=== PATIENT | female | born 1950 | race Hispanic/Latino ===

== ENCOUNTER 2018-03-27 17:39 | Inpatient (IN) | payer MEDICARE ==
[~2018-03-27] VITALS: Ht 152.4 cm; Wt 83.5 kg
[2018-03-27] MEDS: PIPER-TAZ 3.375 GM 50 ML IV SCH (00:55)
[2018-03-27] MEDS: VANCOMYCIN 1GM/NS 250 ML 250 ML IV SCH ×2 (01:35→22:45)
--- OUTSIDE RECORDS SUMMARY | 2018-03-27 17:51 | XMS REPORT ---
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 Montse Rausch MD Other specified disorders of urinary tract Elevated blood pressure 796.2 Active Montse Rausch MD Elevated blood pressure reading without diagnosis of hypertension Hematuria 599.70 Active Montse Rausch MD Hematuria, unspecified Hypertension 401.9 Active Montse Rausch MD Unspecified essential hypertension Obesity Active Montse Rausch MD Obesity, unspecified Ringing in the ears 388.30 Active Montse Rausch MD Tinnitus, unspecified Screening, colon cancer V76.51 Active Montse Rausch MD Screening for malignant neoplasms of colon Tachycardia 785.0 Active Montse Rausch MD Tachycardia, unspecified Thrush, oral 112.0 Active Montse Rausch MD Candidiasis of mouth Tinea corporis 110.5 Active Montse Rausch MD Dermatophytosis of the body Tobacco user 305.1 Active Montse Rausch MD Tobacco use disorder Medication List Medication Instructions Start Date Stop Date Generic Name NDC Status Provider Patient Instruction AUGMENTIN 500-125 MG ORAL TABLET one By Mouth Twice a Day for 7 days AMOXICILLIN-POT CLAVULANATE 65807263815 Active Montse Rausch MD Active FENOFIBRATE 48 MG ORAL TABLET one By Mouth qd FENOFIBRATE 08348703238 Active Montse Rausch MD Active KETOCONAZOLE 2 % EXTERNAL CREAM apply Twice a Day to affected areas until resolved then stop and use as needed KETOCONAZOLE 89239574743 Active Montse Rausch MD Active DIFLUCAN 100 MG ORAL TABLET one By Mouth Every Day for 5 days FLUCONAZOLE 86443588240 Active Montse Rausch MD Active LOSARTAN POTASSIUM 50 MG ORAL TABLET one By Mouth Every Day LOSARTAN POTASSIUM 92882562613 Active Montse Rausch MD Active Vital Signs Date Name Value Unit Range Description blood pressure, diastolic 116 mm[Hg] BP dumont blood pressure, systolic 189 mm[Hg] BP sys height E&M 60 [in_us] Bdy height pulse rate E&M 110 /min Heart rate respiratory rate E&M 25 /min Resp rate temperature E&M 98.2 [degF] Body temperature weight E&M 186.80 [lb_av] Weight Measured blood pressure, diastolic, second observation 120 mm[Hg] BP dumont blood pressure, diastolic 117 mm[Hg] BP dumont blood pressure, systolic, second observation 183 mm[Hg] BP sys blood pressure, systolic 183 mm[Hg] BP sys height E&M 60 [in_us] Bdy height pulse rate E&M 115 /min Heart rate respiratory rate E&M 24 /min Resp rate temperature E&M 98.4 [degF] Body temperature weight E&M 185.60 [lb_av] Weight Measured Diagnostic Results Date Name Value Unit Range Description Lab Report: CBC With Differential/Platelet, Comp. Metabolic Panel (14), ... - Chemistry thyroid stimulating hormone, serum 1.830 u[iU]/mL 0.450-4.500 very low density lipoproteins 55 mg/dL 5-40 chloride, serum 102 mmol/L 96-106 urea nitrogen, blood 14 mg/dL 8-27 Office Visit: Acute Visit_Dr. Rausch 10 - Urinalysis leukocyte esterase, urine, by dipstick negative Lab Report: CBC With Differential/Platelet, Comp. Metabolic Panel (14), ... - Hematology mean corpuscular hemoglobin concentration, RBC 33.9 G/DL % 31.5-35.7 erythrocyte (RBC) count 4.87 X10E6/UL 10*6/mm3 3.77-5.28 Office Visit: Acute Visit_Dr. Rausch 10 - Urinalysis nitrite, urine, semiquantitative negative urine color yellow Lab Report: CBC With Differential/Platelet, Comp. Metabolic Panel (14), ... - Chemistry Absolute Neutrophils 7.8 X10E3/UL 10*3/uL 1.4-7.0 Office Visit: Acute Visit_Dr. Rausch 10 - Urinalysis bilirubin, urine negative Lab Report: CBC With Differential/Platelet, Comp. Metabolic Panel (14), ... - Chemistry LDL cholesterol, serum 148 mg/dL 0-99 urea nitrogen/creatinine ratio, serum 15 12-28 Lab Report: CBC With Differential/Platelet, Comp. Metabolic Panel (14), ... - Hematology mean corpuscular volume, RBC 94 fL 79-97 Lab Report: CBC With Differential/Platelet, Comp. Metabolic Panel (14), ... - Chemistry HDL cholesterol, serum 42 mg/dL >39 Lab Report: CBC With Differential/Platelet, Comp. Metabolic Panel (14), ... - Hematology monocytes as percent of blood leukocytes 9 % Not Estab. Lab Report: CBC With Differential/Platelet, Comp. Metabolic Panel (14), ... - Chemistry albumin/globulin ratio, serum 1.6 1.2-2.2 creatinine, serum 0.93 mg/dL 0.57-1.00 cholesterol, serum 245 mg/dL 689-857 2733/02/06 bilirubin, serum, total 0.2 mg/dL 0.0-1.2 Lab Report: CBC With Differential/Platelet, Comp. Metabolic Panel (14), ... - Hematology Eosinophil Absolute Count 0.5 X10E3/UL 10*3/uL 0.0-0.4 Office Visit: Acute Visit_Dr. Rausch 10 - Urinalysis appearance, urine clear blood in urine (hemoglobin) by dipstick negative Lab Report: CBC With Differential/Platelet, Comp. Metabolic Panel (14), ... - Chemistry aspartate aminotransferase (SGOT), serum 14 U/L 0-40 B-12, serum 404 pg/mL 232-1245 Lab Report: CBC With Differential/Platelet, Comp. Metabolic Panel (14), ... - Hematology red blood cell distribution width 12.7 % 12.3-15.4 leukocyte count, blood 11.3 X10E3/UL 10*3/mm3 3.4-10.8 Office Visit: Acute Visit_Dr. Rausch 10 - Urinalysis pH, urine, semiquantitative 5.0 Lab Report: CBC With Differential/Platelet, Comp. Metabolic Panel (14), ... - Chemistry potassium, serum 4.0 mmol/L 3.5-5.2 albumin, serum 4.4 g/dL 3.6-4.8 immature granulocytes, percentage of total cells, blood 0 % Not Estab. Lab Report: CBC With Differential/Platelet, Comp. Metabolic Panel (14), ... - Hematology lymphocyte count, blood, automated 1.9 X10E3/UL 10*3/mm3 0.7-3.1 hematocrit, blood 45.7 % 34.0-46.6 Lab Report: CBC With Differential/Platelet, Comp. Metabolic Panel (14), ... - Chemistry sodium, serum 142 mmol/L 134-144 Lab Report: CBC With Differential/Platelet, Comp. Metabolic Panel (14), ... - Urinalysis urine culture Escherichia coli Lab Report: CBC With Differential/Platelet, Comp. Metabolic Panel (14), ... - Hematology neutrophils as percent of blood leukocytes 69 % Not Estab. basophils as percent of blood leukocytes 1 % Not Estab. Office Visit: Acute Visit_Dr. Rausch 10 - Urinalysis protein, urine, semiquantitative (dipstick) negative Lab Report: CBC With Differential/Platelet, Comp. Metabolic Panel (14), ... - Serology rapid plasma reagin antibody, serum Non Reactive Non Reactive Lab Report: CBC With Differential/Platelet, Comp. Metabolic Panel (14), ... - Chemistry carbon dioxide, venous blood 20 mmol/L 20-29 triglyceride, serum, fasting 274 mg/dL 0-149 calcium, serum 9.3 mg/dL 8.7-10.3 alanine aminotransferase (SGPT), serum 10 U/L 0-32 Lab Report: CBC With Differential/Platelet, Comp. Metabolic Panel (14), ... - Hematology mean corpuscular hemoglobin, RBC 31.8 pg 26.6-33.0 Office Visit: Acute Visit_Dr. Rausch 10 - Urinalysis specific gravity, urine 1.005 Lab Report: CBC With Differential/Platelet, Comp. Metabolic Panel (14), ... - Chemistry protein, total, serum 7.2 g/dL 6.0-8.5 alkaline phosphatase, serum 94 U/L 39-117 Lab Report: CBC With Differential/Platelet, Comp. Metabolic Panel (14), ... - Hematology hemoglobin, blood 15.5 g/dL 11.1-15.9 lymphocytes as percent of blood leukocytes 17 % Not Estab. Office Visit: Acute Visit_Dr. Rausch 10 - Urinalysis glucose, urine, semiquantitative negative Lab Report: CBC With Differential/Platelet, Comp. Metabolic Panel (14), ... - Genetics/fertility eGFR if 73 mL/min/1.73m2 >59 Lab Report: CBC With Differential/Platelet, Comp. Metabolic Panel (14), ... - Hematology basophil count, absolute 0.1 x10E3/uL 0.0-0.2 Lab Report: CBC With Differential/Platelet, Comp. Metabolic Panel (14), ... - Chemistry globulin, serum 2.8 1.5-4.5 Estimated Glomerular Filtration Rate (calc) 63 mL/min/1.73m2 >59 Lab Report: CBC With Differential/Platelet, Comp. Metabolic Panel (14), ... - Urinalysis microalbumin/total urine volume 10.4 mg/L Not Estab. Lab Report: CBC With Differential/Platelet, Comp. Metabolic Panel (14), ... - Hematology eosinophils as percent of blood leukocytes 4 % Not Estab. Lab Report: CBC With Differential/Platelet, Comp. Metabolic Panel (14), ... - Chemistry blood glucose, random 83 mg/dL 65-99 Office Visit: Acute Visit_Dr. Rausch 10 - Urinalysis urobilinogen, urine, semiquantitative (dipstick) negative Lab Report: CBC With Differential/Platelet, Comp. Metabolic Panel (14), ... - Hematology monocyte count, blood, automated 1.0 X10E3/UL 10*3/uL 0.1-0.9 platelet count 325 X10E3/UL 10*3/mm3 150-379 Office Visit: Acute Visit_Dr. Rausch 10 - Urinalysis ketones, urine, by test strip negative Encounters Date Encounter Provider Code Facility 11:44:[id number] [employer] Est Patient Exp Problem - 96994 Montse Rausch MD CPT-86978 [facility] 15:17:26 [employer] Patient Nurse - Only Visit - 48172 Montse Rausch MD CPT-14996 [facility] Procedures Code Procedure Name Date Entry Date Standard Description CPT-75971 Urinalysis - Dip only - In House 15:18:45 [employer] [facility] [facility] [employer] CPT-42377 Finger Stick Glucose 15:17:29 [facility] [facility] [facility] CPT-12698 EKG - 12 Leads with Interpretation and Report 15:17:29 [employer]
[2018-03-27 20:00] VITALS: BP 163/91
[2018-03-27 20:30] VITALS: BP 163/91
[2018-03-27] MEDS ORDERED: LACTATED RINGER'S 1,000 ML IV SCH (20:30)
[2018-03-27 20:56] LABS: BASOPHILS # (AUTO) 0.1 (0.0-0.1); BASOPHILS % 0.6 % (0.0-1.0); EOSINOPHILS # (AUTO) 0.3 (0.0-0.4); EOSINOPHILS % 2.4 % (0.0-6.0); HEMATOCRIT 42.9 % (34.2-44.1); HEMOGLOBIN 14.6 g/dL (12.0-16.0); LYMPHOCYTES # (AUTO) 1.6 (1.0-3.2); LYMPHOCYTES % 15.3 % (18.0-39.1); MEAN CORPUSCULAR HEMOGLOBIN 31.7 pg (28-32); MEAN CORPUSCULAR VOLUME 93.1 fL (81-99); MONOCYTES % 9.9 % (4.4-11.3); NEUTROPHILS # (AUTO) 7.4 (2.1-6.9); NEUTROPHILS % 71.2 % (38.7-80.0); PLATELET COUNT 277 x10e3/uL (140-360); RED BLOOD COUNT 4.61 x10e6/uL (3.6-5.1); RED CELL DISTRIBUTION WIDTH 12.2 % (11.7-14.4)
[2018-03-27 21:06] LABS: INR 0.98; PROTHROMBIN TIME 13.9 seconds (11.9-14.5)
[2018-03-27 21:15] LABS: ALANINE AMINOTRANSFERASE 14 IU/L (0-55); ALBUMIN 3.7 g/dL (3.5-5.0); ALBUMIN/GLOBULIN RATIO 1.1 (0.8-2.0); ALKALINE PHOSPHATASE 86 IU/L (40-150); ANION GAP 16.6 mmol/L (8-16); BLOOD UREA NITROGEN 11 mg/dL (7-26); BUN/CREATININE RATIO 13 (6-25); CALCIUM 9.4 mg/dL (8.4-10.2); CARBON DIOXIDE 22 mmol/L (22-29); CHLORIDE 100 mmol/L (98-107); CREATININE, SERUM 0.88 mg/dL (0.57-1.11); EST GLOMERULAR FILTRATION RATE > 60 ML/MIN (60-); GLUCOSE 101 mg/dL (74-118); POTASSIUM 3.6 mmol/L (3.5-5.1); SODIUM 135 mmol/L (136-145)
[2018-03-27] MEDS ORDERED: DOXYCYCLINE HY100 MG PO (21:27)
[2018-03-27] MEDS ORDERED: LOSARTAN POTAS100 MG PO (21:27)
[2018-03-27] MEDS ORDERED: FLUCONAZOLE100 MG PO (21:27)
[2018-03-27] MEDS ORDERED: FENOFIBRATE145 MG PO (21:27)
[2018-03-27] MEDS ORDERED: KETOCONAZOLE15 GM TOP (21:27)
--- NOTE | 2018-03-27 21:27 | NUR ---
Patient received sitting up in bed. Admission history obtained and Initial physical assessment performed. Patient is AAO x 3. No complaints of pain. No signs of respiratory distress. IV inserted in Left FA 20G. Patient oriented to room, call light and plan of care. Bed locked and in lowest position. Bed rails up x 2. Patient oriented to room, call light and plan of care. Patient instructed to call for assistance when needed. Call light within reach.
--- NOTE | 2018-03-27 21:54 | Diagnostic Imaging Report ---
EXAMINATION: CHEST 2 VIEWS INDICATION: ^Diverticulitis ^[id number] ^2099 COMPARISON: None FINDINGS: PA and lateral views TUBES and LINES: None. LUNGS: Lungs are well inflated. No definite focal consolidation. Minimal bibasilar subsegmental atelectasis. PLEURA: No pleural effusion or pneumothorax. HEART AND MEDIASTINUM: The cardiac silhouette is prominent. Aorta is mildly calcified and tortuous. BONES AND SOFT TISSUES: No acute osseous lesion. Soft tissues are unremarkable. UPPER ABDOMEN: No free air under the diaphragm. IMPRESSION: No acute thoracic abnormality. Minimal bibasilar subsegmental atelectasis. Signed by: Dr. Reza Meneses MD on 03/27/2018 9:50 PM
[2018-03-27] MEDS ORDERED: LABETALOL HCL 5 MG/ML 20ML VIAL IV PRN (22:00)
--- NOTE | 2018-03-27 22:06 | NUR ---
Dr. Terry Winn notified of new "Direct Admit" patient. New orders received.
--- NOTE | 2018-03-27 22:10 | NUR ---
Lactated Ringer discontinued and patient placed on "NPO" instead of "Clear Liquid" diet per MD's orders.
[2018-03-27] MEDS: SODIUM CHLORIDE 0.9% 1000ML 1,000 ML IV SCH (22:45)
--- NOTE | 2018-03-27 23:20 | NUR ---
Blood culture x 1 sent to lab for analysis.
[2018-03-28] VITALS (8 sets, daily range): BP systolic 127–158; BP diastolic 67–76
[2018-03-28] MEDS: PIPER-TAZ 3.375 GM 50 ML IV SCH ×3 (05:15→22:00)
--- NOTE | 2018-03-28 07:25 | NUR ---
History and PHysical cc: hematuria and abdominal pain HPI; 67yoF, PCP , Urologist , managed by with CT imaging for abdominal pain and microhematuria, found to have abscess with imping ement on bladder. Sent to hospital for direct admit and IV abx/IVF. Pt states that symptoms have been ongoing for 3 weeks, but worsened in last 3 days; Admits to vaginal discomfort/edema and blood in her urine. No f/c/s. No V/D. PMH: chr sinusitis, HTn, asthma, HTG, microhematuria, cig use PShx: hysterectomy Allergies; see emr Fh/SH; single; 1/4ppd cigs; no illicits Meds; see MAR ROS: no f/c/s/N/V/D/JACKSON/vision changes/cp/sob/skin rash V/S; rev'd PE: tired appearing anicteric ns1s2 mod bs soft ND; TENDER LOWER ABDOMEN, L>R; no e/t skin dry flat affect a&ox3; potter labs/med; revd A/P; 67yoF Abdominal abscess Microhematuria Current smoker Obesity HTG HTN PLAN 1.IV abx; NPO 2.f/u cx 3.check hba1c/lipids 4.rehydrate 5.nicotine patch SCD dispo: sed rate; cultures; f/u labs; GI consultation; f/u Official read of imaging; reimage if needed; Keep NPO Collins Winn MD, PhD.
[2018-03-28 07:42] LABS: CHOL/HDL RATIO 4.8 (3.0-3.6)
--- NOTE | 2018-03-28 08:00 | NUR ---
The pt. is maintained nothing by mouth pending results of outside Ct scan. There is a disc on the pt's chart along with notes from dr. Luciano.
[2018-03-28] MEDS: SODIUM CHLORIDE 0.9% 1000ML 1,000 ML IV SCH (11:20)
--- NOTE | 2018-03-28 12:08 | NUR ---
[facility] radiology called for written result of CT scan and they reported that a copy will be faxed.
--- NOTE | 2018-03-28 12:22 | NUR ---
CASE MANAGEMENT ASSESSMENT V Belt Inspector to bedside to discuss plan of care with patient/family. CM/SW role and care transitions discussed. Anticipated discharge plan discussed along with duration of care. CM/SW discussed patients right to make decisions in care. CM/SW work hours given. Patient lives: with son Otis Silva Admit/Transfer: direct admit Hospital/ER visits since last admit: pt states last hospitalization was years ago POA/Emergency contact: Otis Silva [phone] Current/Previous Home Health: none PCP/Follow-up Care: Dr. Montse Rausch at [facility] in [place] - PCP; Dr. Boogie Luciano - urology; advised pt to follow up with MD within 7 days of discharge Current/Previous DME: none Medications (referring to index hospitalization or the first time you were in the hospital) a. Were changes made in your medications when you were in the hospital on [index hospitalization]? n/a b. Did you understand the changes? n/a c. Were you able to obtain your new medications right away? n/a d. Were you able to take your medications like the doctor wanted you to? n/a e. Did the hospital give you an accurate, easy to understand list of medications when you left? n/a Scale of 1-10 how comfortable does patient feel with disease management in outpatient setting: Other Services: none Employment Status: retired Areas of Concerns: diverticulitis Referral Needs: none Education Needs: diverticulitis, medical management IMM/DUQUE given and signed (if applicable): DUQUE Goal for discharge: home CM/SW left business card at the bedside with contact information. Name and number was also written on the patients whiteboard. Patient verbalized understanding of discussion. CM will follow-up with ongoing discharge and transition of care needs. Addendum: 03/28/18 at 1402 by Rona Chacon CM Verified demographics with pt. She stated her address was listed incorrectly on facesheet. Correct information emailed to business office.
--- NOTE | 2018-03-28 12:39 | NUR ---
Dr. Winn returned the call and was read the results of the ct scan and will remind Dr. Charo Espinosa to see the pt.
--- NOTE | 2018-03-28 13:22 | NUR ---
The consult was recalled to Dr. Charo Espinosa and I spoke with Kerline who reports that she will page the to return the call.
[2018-03-28 18:46] LABS: CLARITY,URINE HAZY (CLEAR); COLOR,URINE YELLOW (YELLOW)
[2018-03-28 18:47] LABS: BILIRUBIN,URINE 1+ (NEGATIVE); KETONES,URINE 1+ (NEGATIVE); LEUKOCYTE ESTERASE ,URINE TRACE (NEGATIVE); NITRITE,URINE NEGATIVE (NEGATIVE); PROTEIN,URINE DIPSTICK 1+ (NEGATIVE); URINE UROBILINOGEN 0.2 mg/dL (0.2 - 1)
[2018-03-28 18:55] LABS: AMORPHOUS SEDIMENT,URINE FEW (FEW); BACTERIA,URINE MANY /HPF; EPITHELIAL CELLS,URINE MODERATE /LPF
--- NOTE | 2018-03-28 19:25 | NUR ---
Patient received lying in bed. AAO x 3. No acute distress noted. Patient instructed to call for assistance when needed. Call light within reach.
[2018-03-28] MEDS: VANCOMYCIN 1GM/NS 250 ML 250 ML IV SCH (22:45)
[2018-03-29] VITALS (7 sets, daily range): BP systolic 134–168; BP diastolic 63–83
--- NOTE | 2018-03-29 01:14 | NUR ---
Dr. Charo Espinosa here to see patient. New order received.
[2018-03-29] MEDS: SODIUM CHLORIDE 0.9% 1000ML 1,000 ML IV SCH ×2 (01:19→13:05)
[2018-03-29] MEDS: LABETALOL HCL 20 MG/4 ML SYRINGE IV PRN (01:28)
[2018-03-29] MEDS: PIPER-TAZ 3.375 GM 50 ML IV SCH ×3 (06:00→21:22)
--- NOTE | 2018-03-29 06:20 | NUR ---
Im- progress note O/N; no events ROS: no f/c/s/N/V/D/JACKSON/vision changes/cp/sob/skin rash V/S; rev'd PE: tired appearing anicteric ns1s2 mod bs soft ND; TENDER LOWER ABDOMEN, L>R; no e/t skin dry flat affect a&ox3; potter labs/med; revd A/P; 67yoF Abdominal abscess Microhematuria Current smoker Obesity HTG HTN PLAN 1.IV abx; NPO 2.f/u cx 3.check hba1c/lipids 4.rehydrate 5.nicotine patch SCD dispo: sed rate; cultures; f/u labs; GI consultation; f/u Official read of imaging; reimage if needed; Keep NPO 03/29 Hba1c/LDL 5.8/125; Pt has PreDM; Diverticulitis- abx; UTI- abx cultures remain negative; Collins Winn MD, PhD.
[2018-03-29] MEDS: LORATADINE 10 MG TAB PO SCH (08:11)
[2018-03-29] MEDS: ACETAMINOPHEN 325 MG TAB PO PRN (08:11)
--- NOTE | 2018-03-29 09:26 | NUR ---
IMM letter delivered and explained to pt. She verbalized understanding. Signed copy placed in chart. Copy to pt.
--- NOTE | 2018-03-29 19:28 | NUR ---
Patient received sitting up in bed. AAO x 3. No acute distress noted. Patient instructed to call for assistance when needed. Call light within reach.
--- NOTE | 2018-03-29 21:19 | NUR ---
Blood specimen sent to lab for Vancomycin analysis.
--- NOTE | 2018-03-29 21:20 | NUR ---
IV on left arm infiltrated. Old IV removed with tip intact. New IV inserted in right hand 20G. Patient tolerated well.
[2018-03-29] MEDS: VANCOMYCIN 1GM/NS 250 ML 250 ML IV SCH (23:00)
--- NOTE | 2018-03-29 23:08 | NUR ---
Dr. Terry Winn notified of Vancomycin trough results (5.4). New order received.
[2018-03-29] MEDS ORDERED: VANCOMYCIN 1GM/NS 250 ML 250 ML IV SCH (23:15)
[2018-03-30] VITALS (8 sets, daily range): BP systolic 144–170; BP diastolic 65–88
[2018-03-30] MEDS ORDERED: VANCOMYCIN 1GM/NS 250 ML 250 ML IV SCH ×3 (01:15→09:00)
--- NOTE | 2018-03-30 01:17 | NUR ---
Dr. Charo Espinosa here to see patient. New order received.
[2018-03-30] MEDS: SODIUM CHLORIDE 0.9% 1000ML 1,000 ML IV SCH ×2 (03:20→16:17)
[2018-03-30] MEDS ORDERED: VANCOMYCIN HCL 1.25 GM in SODIUM CHLORIDE 0.9% 250ML 300 ML IV SCH (03:45)
[2018-03-30] MEDS: PIPER-TAZ 3.375 GM 50 ML IV SCH ×3 (06:15→20:35)
[2018-03-30] MEDS: LORATADINE 10 MG TAB PO SCH (08:26)
--- NOTE | 2018-03-30 10:38 | NUR ---
Im- progress note O/N; no events ROS: no f/c/s/N/V/D/JACKSON/vision changes/cp/sob/skin rash V/S; rev'd PE: tired appearing anicteric ns1s2 mod bs soft ND; TENDER LOWER ABDOMEN, L>R; no e/t skin dry flat affect a&ox3; potter labs/med; revd A/P; 67yoF Abdominal abscess Microhematuria Current smoker Obesity HTG HTN PLAN 1.IV abx; NPO 2.f/u cx 3.check hba1c/lipids 4.rehydrate 5.nicotine patch SCD dispo: sed rate; cultures; f/u labs; GI consultation; f/u Official read of imaging; reimage if needed; Keep NPO 03/29 Hba1c/LDL 5.8/125; Pt has PreDM; Diverticulitis- abx; UTI- abx cultures remain negative; 03/30 check labs; vanco subtherapeutic- titrated up. Collins Winn MD, PhD.
[2018-03-30] MEDS: VANCOMYCIN HCL 1.25 GM in SODIUM CHLORIDE 0.9% 250ML 250 ML IV SCH ×2 (10:40→22:48)
[2018-03-30 11:05] LABS: BASOPHILS # (AUTO) 0.1 (0.0-0.1); BASOPHILS % 0.8 % (0.0-1.0); EOSINOPHILS # (AUTO) 0.4 (0.0-0.4); EOSINOPHILS % 4.2 % (0.0-6.0); HEMATOCRIT 42.3 % (34.2-44.1); LYMPHOCYTES # (AUTO) 1.4 (1.0-3.2); LYMPHOCYTES % 16.1 % (18.0-39.1); MEAN CORPUSCULAR HGB CONC 33.1 g/dL (31-35); MEAN CORPUSCULAR VOLUME 93.6 fL (81-99); MONOCYTES % 11.1 % (4.4-11.3); NEUTROPHILS # (AUTO) 5.8 (2.1-6.9); NEUTROPHILS % 67.3 % (38.7-80.0); PLATELET COUNT 305 x10e3/uL (140-360); RED BLOOD COUNT 4.52 x10e6/uL (3.6-5.1); RED CELL DISTRIBUTION WIDTH 12.1 % (11.7-14.4)
[2018-03-30 11:23] LABS: ANION GAP 11.8 mmol/L (8-16); BLOOD UREA NITROGEN 6 mg/dL (7-26); BUN/CREATININE RATIO 7 (6-25); CARBON DIOXIDE 24 mmol/L (22-29); CHLORIDE 108 mmol/L (98-107); CREATININE, SERUM 0.87 mg/dL (0.57-1.11); EST GLOMERULAR FILTRATION RATE > 60 ML/MIN (60-); GLUCOSE 99 mg/dL (74-118); POTASSIUM 3.8 mmol/L (3.5-5.1); SODIUM 140 mmol/L (136-145)
[2018-03-30] MEDS: LABETALOL HCL 20 MG/4 ML SYRINGE IV PRN (20:35)
[2018-03-31] VITALS (7 sets, daily range): BP systolic 135–179; BP diastolic 70–89
[2018-03-31] MEDS: PIPER-TAZ 3.375 GM 50 ML IV SCH ×3 (05:24→20:58)
[2018-03-31] MEDS ORDERED: DIATRIZOATE MEGL/DIATRIZOA SOD 30 ML BTL PO ONE (07:03)
--- NOTE | 2018-03-31 07:07 | NUR ---
received patient lying in bed with eyes closed, Resp even and unlabored. call light within reach.
[2018-03-31] MEDS: SODIUM CHLORIDE 0.9% 1000ML 1,000 ML IV SCH (07:18)
[2018-03-31] MEDS: LORATADINE 10 MG TAB PO SCH (08:58)
[2018-03-31] MEDS: LOSARTAN POTASSIUM 100 MG TAB PO SCH (08:58)
[2018-03-31] MEDS ORDERED: DOXYCYCLINE HYCLATE TABLET 100 MG TAB PO SCH (09:00)
[2018-03-31] MEDS ORDERED: FLUCONAZOLE 100 MG TAB PO SCH (09:00)
[2018-03-31] MEDS ORDERED: FENOFIBRATE 145 MG TAB PO SCH (09:00)
[2018-03-31] MEDS: FENOFIBRATE 145 MG TAB PO SCH (09:03)
[2018-03-31] MEDS: VANCOMYCIN HCL 1.25 GM in SODIUM CHLORIDE 0.9% 250ML 250 ML IV SCH (10:00)
--- NOTE | 2018-03-31 11:06 | Diagnostic Imaging Report ---
EXAM: CT Abdomen and Pelvis WITH contrast INDICATION: Abdominal Pain COMPARISON: Outside hospital CT Abdomen/Pelvis 03/27/18. TECHNIQUE: Abdomen and pelvis were scanned utilizing a multidetector helical scanner from the lung base to the pubic symphysis after administration of IV contrast. Coronal and sagittal reformations were obtained. Routine protocol was performed. Scan was performed when during portal venous phase. IV CONTRAST: 100 cc of Isovue 370. ORAL CONTRAST: Water COMPLICATIONS: None RADIATION DOSE: Total DLP: 634.3 mGy*cm CTDIvol has been reviewed. It is below the limits set by the Radiation Protocol Committee (RPC). Dose modulation, iterative reconstruction, and/or weight based adjustment of the mA/kV was utilized to reduce the radiation dose to as low as reasonably achievable. FINDINGS: LINES and TUBES: None. LOWER THORAX: Trace pericardial fluid. Patchy dependent atelectasis. There are cysts at the right lung base. Fat-containing Bochdalek hernias. HEPATOBILIARY: Diffuse mild fatty liver. No evidence of focal lesion. No biliary ductal dilation. GALLBLADDER: No radio-opaque stones or sludge. No wall thickening. SPLEEN: No splenomegaly. PANCREAS: No focal masses or ductal dilatation. ADRENALS: No adrenal nodules KIDNEYS/URETERS: Kidneys enhance symmetrically. No evidence of hydronephrosis, solid mass, or stone. GI TRACT: There is descending and sigmoid diverticulosis. There is sigmoid colonic wall thickening and inflammatory changes, as seen on series 2, image 56 through 64. Findings are similar to that of outside hospital CT on 03/27/2018. Appendix is not clearly identified. There is however no fat stranding or adenopathy in the right lower quadrant to suggest appendicitis. PELVIC ORGANS/BLADDER: There is bladder wall thickening along the superior left aspect adjacent to the sigmoid diverticulitis. LYMPH NODES: No lymphadenopathy. VESSELS: There are atherosclerotic calcifications of the abdominal aorta and branch vessels. No evidence of aneurysm. PERITONEUM / RETROPERITONEUM: There is a 2.2 x 1.4 cm ill-defined phlegmonous area adjacent to the bladder containing a punctate focus of air. No drainable fluid collection. BONES AND SOFT TISSUES: No acute osseous abnormality. No suspicious lytic or blastic lesions. There is mild anterolisthesis of L4 and L5. There are degenerative disc changes at L5-S1. CONCLUSION: Findings consistent with acute sigmoid diverticulitis. Small area of phlegmonous change containing punctate focus of extraluminal air adjacent to the bladder. No drainable abscess. Continued follow-up is recommended. Given focal sigmoid colonic wall thickening, upon resolution of acute symptoms, colonoscopy is suggested for further evaluation. Signed by: Dr. Kevin Schmidt MD on 03/31/2018 11:03 AM
[2018-03-31] MEDS ORDERED: SODIUM CHLORIDE 0.9% 50ML 50 ML ONE (13:07)
[2018-03-31] MEDS ORDERED: IOPAMIDOL 370 MG/ML 200 ML INFUS..BTL INJ ONE (13:07)
--- NOTE | 2018-03-31 13:57 | NUR ---
Im- progress note O/N; no events ROS: no f/c/s/N/V/D/JACKSON/vision changes/cp/sob/skin rash V/S; rev'd PE: tired appearing anicteric ns1s2 mod bs soft ND; TENDER LOWER ABDOMEN, L>R; no e/t skin dry flat affect a&ox3; potter labs/med; revd A/P; 67yoF Abdominal abscess Microhematuria Current smoker Obesity HTG HTN PLAN 1.IV abx; NPO 2.f/u cx 3.check hba1c/lipids 4.rehydrate 5.nicotine patch SCD dispo: sed rate; cultures; f/u labs; GI consultation; f/u Official read of imaging; reimage if needed; Keep NPO 03/29 Hba1c/LDL 5.8/125; Pt has PreDM; Diverticulitis- abx; UTI- abx cultures remain negative; 03/30 check labs; vanco subtherapeutic- titrated up. 03/31 Phlegmon- sx consult; cont IV abx, reduce vanco. Collins Winn MD, PhD.
--- NOTE | 2018-03-31 20:15 | Consultation ---
DATE OF CONSULTATION: March 31, 2018 CHIEF COMPLAINT: Abdominal pain. HPI: The patient is a 67-year-old female with 1-week history of lower abdominal pain in the suprapubic regions with loose stool. No fever, chills, or vomiting. Patient has known history of recurrent diverticulitis for the last 2 years every 6 months or so, which lasted 2 to 3 days, sometime with antibiotic treatment. PAST MEDICAL HISTORY: Significant for high blood pressure. ALLERGIES: SHE HAS ALLERGIC REACTION TO IBUPROFEN. SOCIAL HABITS: She does not smoke or drink alcohol. REVIEW OF SYSTEMS: No chest pain, shortness of breath, or cough. PHYSICAL EXAMINATION VITAL SIGNS: Stable. Afebrile. GENERAL: She is awake, alert, in no apparent distress. HEENT: Sclerae nonicteric. NECK: Supple. LUNGS: Clear. HEART: Regular rate and rhythm. ABDOMEN: Soft with minimal guarding in the left lower quadrant without rebound. EXTREMITIES: Without cyanosis or edema. LABS: White cell count 8.5, hemoglobin of 14. Creatinine of 0.8. CT of the abdomen show acute sigmoid diverticulitis with extraluminal air adjacent to the bladder suggestive microperforation. ASSESSMENT: Recurrent diverticulitis with possible evolving colovesical fistula formation with history of hematuria. PLAN: IV antibiotic has been initiated. We will follow patient closely. No emergent surgical indication at present. Job#: [id number] [place]
[2018-04-01] VITALS (7 sets, daily range): BP systolic 127–164; BP diastolic 62–84
[2018-04-01] MEDS: LABETALOL HCL 20 MG/4 ML SYRINGE IV PRN ×2 (04:18→09:35)
[2018-04-01] MEDS: PIPER-TAZ 3.375 GM 50 ML IV SCH ×3 (05:20→21:39)
--- NOTE | 2018-04-01 07:02 | NUR ---
Received patient mid fowlers position, side rails upx2, call light within reach. Resting with eyes closed. Arousable to verbal stimuli. Respirations even and unlabored. No facial grimacing noted. Will continue to monitor.
--- NOTE | 2018-04-01 08:55 | NUR ---
IMM letter delivered and explained to pt. She verbalized understanding. Signed copy placed in chart. Copy placed in pt's transition of care folder.
[2018-04-01] MEDS: SODIUM CHLORIDE 0.9% 1000ML 1,000 ML IV SCH (09:35)
[2018-04-01] MEDS: FENOFIBRATE 145 MG TAB PO SCH (09:35)
[2018-04-01] MEDS: LORATADINE 10 MG TAB PO SCH (09:35)
[2018-04-01] MEDS: LOSARTAN POTASSIUM 100 MG TAB PO SCH (09:35)
[2018-04-01] MEDS: VANCOMYCIN 1GM/NS 250 ML 250 ML IV SCH ×2 (09:35→19:47)
--- NOTE | 2018-04-01 19:05 | NUR ---
Report given to oncoming nurse of patient's status. NO s/s of acute distress noted.
[2018-04-01] MEDS: ACETAMINOPHEN 325 MG TAB PO PRN (21:39)
[2018-04-02] VITALS: BP 142/66
[2018-04-02 04:00] VITALS: BP 149/75
[2018-04-02] MEDS: PIPER-TAZ 3.375 GM 50 ML IV SCH (05:33)
[2018-04-02] MEDS ORDERED: CLINDAMYCIN HC150 MG PO (06:40)
[2018-04-02] MEDS ORDERED: CIPRO500 MG PO (06:40)
[2018-04-02 07:17] LABS: BASOPHILS # (AUTO) 0.1 (0.0-0.1); BASOPHILS % 1.1 % (0.0-1.0); EOSINOPHILS # (AUTO) 0.6 (0.0-0.4); EOSINOPHILS % 8.2 % (0.0-6.0); HEMATOCRIT 41.6 % (34.2-44.1); HEMOGLOBIN 13.9 g/dL (12.0-16.0); LYMPHOCYTES # (AUTO) 1.3 (1.0-3.2); LYMPHOCYTES % 18.8 % (18.0-39.1); MEAN CORPUSCULAR HEMOGLOBIN 31.8 pg (28-32); MEAN CORPUSCULAR HGB CONC 33.4 g/dL (31-35); MEAN CORPUSCULAR VOLUME 95.2 fL (81-99); MONOCYTES # (AUTO) 0.8 (0.2-0.8); MONOCYTES % 11.5 % (4.4-11.3); NEUTROPHILS # (AUTO) 4.2 (2.1-6.9); NEUTROPHILS % 60.1 % (38.7-80.0); PLATELET COUNT 263 x10e3/uL (140-360); RED BLOOD COUNT 4.37 x10e6/uL (3.6-5.1); RED CELL DISTRIBUTION WIDTH 12.3 % (11.7-14.4)
[2018-04-02 07:34] LABS: ANION GAP 9.6 mmol/L (8-16); BLOOD UREA NITROGEN 8 mg/dL (7-26); BUN/CREATININE RATIO 9 (6-25); CALCIUM 8.4 mg/dL (8.4-10.2); CARBON DIOXIDE 25 mmol/L (22-29); CHLORIDE 112 mmol/L (98-107); CREATININE, SERUM 0.86 mg/dL (0.57-1.11); EST GLOMERULAR FILTRATION RATE > 60 ML/MIN (60-); GLUCOSE 87 mg/dL (74-118); POTASSIUM 3.6 mmol/L (3.5-5.1); SODIUM 143 mmol/L (136-145)
[2018-04-02] MEDS: FENOFIBRATE 145 MG TAB PO SCH (07:37)
[2018-04-02] MEDS: LORATADINE 10 MG TAB PO SCH (07:37)
[2018-04-02] MEDS: VANCOMYCIN 1GM/NS 250 ML 250 ML IV SCH (07:37)
[2018-04-02] MEDS: LOSARTAN POTASSIUM 100 MG TAB PO SCH (07:37)
--- NOTE | 2018-04-02 07:59 | NUR ---
paged to notify of lab results. Awaiting for call back
[2018-04-02 08:00] VITALS: BP 145/69
--- NOTE | 2018-04-02 08:07 | NUR ---
aware of lab results. Per "okay to discharge"
--- NOTE | 2018-04-02 09:38 | NUR ---
Right wrist IV discontinued. No signs of infiltration noted. 2x2 gauze and tape placed. Taken via wheelchair to personal car. AAOX4 to time, person,place, situation. Respirations even and unlabored. Denies pain. Rx, discharge instructions, and all personal belongings taken with patient.
== END 2018-04-02 09:38 | disposition home or self-care (01) | DRG 392 ==
LOC: MED/SURG2 17:39 → OBSVTOIN 03-28 07:25
PROVIDERS: ADMIT Internal Medicine; ATTEND Internal Medicine
DX: K57.20 Diverticulitis of large intestine with perforation and abscess without bleeding (principal); N32.1 Vesicointestinal fistula; N30.91 Cystitis, unspecified with hematuria; I10 Essential (primary) hypertension; E78.5 Hyperlipidemia, unspecified; K76.0 Fatty (change of) liver, not elsewhere classified
CPT/HCPCS: 36415; 71046; 74177; 80048; 80053; 80061; 80202; 81001; 83036; 85025; 85610; 85651; 87040; 93005; G0378; J2543; J3370; J7030; J7050; J7121; Q9967